=== PATIENT | female | born 1995 | race Caucasian/White ===

== ENCOUNTER 2022-08-10 10:24 | Emergency (ER) | payer OTHER ==
[2022-08-10 11:08] VITALS: BP 120/88
[2022-08-10 11:28] LABS: BASOPHILS # (AUTO) 0.1 10^3/uL (0.0-0.1); EOSINOPHILS # (AUTO) 0.2 10^3/uL (0.0-0.7); EOSINOPHILS % (AUTO) 1.8 %; HCT - HEMATOCRIT 41.3 % (37.0-47.0); HGB - HEMOGLOBIN 13.6 g/dL (12.0-16.0); LYMPHOCYTES # (AUTO) 4.7 10^3/uL (1.5-3.5); LYMPHOCYTES % (AUTO) 40.6 %; MEAN CORPUSCULAR HEMOGLOBIN 29.7 pg (27.0-31.0); MEAN CORPUSCULAR HGB CONC 32.9 g/dL (32.0-36.0); MEAN CORPUSCULAR VOLUME 90.2 fL (81.0-99.0); MEAN PLATELET VOLUME 11.3 fL (7.9-10.8); MONOCYTES % (AUTO) 8.5 %; NEUTROPHILS # (AUTO) 5.5 10^3/uL (1.5-6.6); NEUTROPHILS % (AUTO) 47.9 %; PLT - PLATELET COUNT 337 10^3/uL (130-450); RED BLOOD COUNT 4.58 10^6/uL (4.20-5.40); WHITE BLOOD COUNT 11.6 x10^3/uL (4.8-10.8)
[2022-08-10 11:41] LABS: ALBUMIN 3.7 g/dL (3.2-5.5); ALBUMIN/GLOBULIN RATIO 0.9 (1.0-2.2); BILIRUBIN,TOTAL 0.6 mg/dL (0.2-1.0); CALCIUM 9.5 mg/dL (8.5-10.3); CREATININE 0.7 mg/dL (0.4-1.0); POTASSIUM 3.7 mmol/L (3.5-5.0); TOTAL PROTEIN 7.9 g/dL (6.7-8.2)
--- NOTE | 2022-08-10 12:24 | ED Physician Documentation ---
PD HPI ABD PAIN - Stated complaint Stated Complaint: 12 WKS PREG, SPOTTING - Chief complaint Chief Complaint: Abd Pain - History obtained from History obtained from: Patient - Additional information Additional information: G2 now G3. Her last normal menses was 12 weeks ago but she had an abnormal menses about 6 weeks ago. Today she noticed light vaginal spotting. When I ask her if she is having any cramping she says only if she thinks very hard about it, then it might be very mild. PD PAST MEDICAL HISTORY - Allergies Allergies/Adverse Reactions: Allergies Allergy/AdvReac Type Severity Reaction Status Date / Time No Known Drug Allergies Allergy Verified 08/10/22 11:08 PD ED PE NORMAL - Vitals Vital signs reviewed: Yes - General General: Alert and oriented X 3, No acute distress - Abdomen Abdomen: Non tender - Neuro Neuro: Alert and oriented X 3, Normal speech - Psych Psych: Normal mood, Normal affect Results - Vitals Vitals: Vital Signs - 24 hr 08/10/22 11:04 Temperature 36.8 C Heart Rate 104 H Respiratory 16 Rate Blood Pressure 120/88 H O2 Saturation 100 Oxygen O2 Source Room air - Labs Labs: Laboratory Tests 08/10/22 08/10/22 08/10/22 11:16 11:16 11:16 WBC 11.6 H RBC 4.58 Hgb 13.6 Hct 41.3 MCV 90.2 MCH 29.7 MCHC 32.9 RDW 14.0 Plt Count 337 MPV 11.3 H Neut # (Auto) 5.5 Lymph # (Auto) 4.7 H Steele # (Auto) 1.0 Eos # (Auto) 0.2 Baso # (Auto) 0.1 Absolute Nucleated RBC 0.00 Nucleated RBC % 0.0 Sodium 139 Potassium 3.7 Chloride 107 Carbon Dioxide 26 Anion Gap 6.0 BUN 11 Creatinine 0.7 Estimated GFR (MDRD) 100 Glucose 75 Calcium 9.5 Total Bilirubin 0.6 AST 22 ALT 20 Alkaline Phosphatase 71 Total Protein 7.9 Albumin 3.7 Globulin 4.2 Albumin/Globulin Ratio 0.9 L Lipase 57 H HCG, Quant Urine Color Urine Clarity Urine pH Ur Specific [place] Urine Protein Urine Glucose (UA) Urine Ketones Urine Occult Blood Urine Nitrite Urine Bilirubin Urine Urobilinogen Ur Leukocyte Esterase Ur Microscopic Review Urine Culture Comments Blood Type A NEGATIVE Blood Type Recheck 08/10/22 08/10/22 08/10/22 11:16 12:06 12:32 WBC RBC Hgb Hct MCV MCH MCHC RDW Plt Count MPV Neut # (Auto) Lymph # (Auto) Steele # (Auto) Eos # (Auto) Baso # (Auto) Absolute Nucleated RBC Nucleated RBC % Sodium Potassium Chloride Carbon Dioxide Anion Gap BUN Creatinine Estimated GFR (MDRD) Glucose Calcium Total Bilirubin AST ALT Alkaline Phosphatase Total Protein Albumin Globulin Albumin/Globulin Ratio Lipase HCG, Quant 3642.00 Urine Color YELLOW Urine Clarity CLEAR Urine pH 6.0 Ur Specific [place] 1.015 Urine Protein NEGATIVE Urine Glucose (UA) NEGATIVE Urine Ketones NEGATIVE Urine Occult Blood LARGE H Urine Nitrite NEGATIVE Urine Bilirubin NEGATIVE Urine Urobilinogen 0.2 (NORMAL) Ur Leukocyte Esterase NEGATIVE Ur Microscopic Review INDICATED Urine Culture Comments Not Reportable Blood Type Blood Type Recheck A NEGATIVE - Rads (name of study) OB sono - 5w 2d early IUP Radiology: Final report received, EMP read indepedently Departure - Departure Disposition: 01 Home, Self Care Clinical Impression: Threatened Condition: Good Record reviewed to determine appropriate education?: Yes Instructions: ED Miscarriage Poss Follow-Up: [facility] [Provider Group] Comments: As discussed, the ultrasound shows an intrauterine at 5 weeks and 2 days. It is too early to see any other detail. Recommend repeat ultrasound in 1 week for further info. [place] [facility] (number on this sheet). Discharge Date/Time: 08/10/22 12:37
[2022-08-10 12:37] LABS: BILIRUBIN,URINE NEGATIVE (NEGATIVE); GLUCOSE, URINE (UA) NEGATIVE (NEGATIVE); KETONES,URINE (UA) NEGATIVE (NEGATIVE); LEUKOCYTE ESTERASE, URINE NEGATIVE (NEGATIVE); NITRITE,URINE NEGATIVE (NEGATIVE); OCCULT BLOOD,URINE LARGE (NEGATIVE); PROTEIN,URINE NEGATIVE (NEGATIVE); UROBILINOGEN,URINE 0.2 (NORMAL) E.U./dL (NORMAL)
[2022-08-10 12:40] LABS: CLARITY,URINE CLEAR (CLEAR)
--- NOTE | 2022-08-10 12:45 | Ultrasound Report ---
PROCEDURE: OB First Trimester w/TV INDICATIONS: preg VB OUTSIDE/PRIOR DATING DATA: Last menstrual period (LMP): 05/17/2022. LMP-based estimated date of delivery (GIOVANNI): 02/21/2023. First dating scan (date and location): 08/10/2022. Estimated date of delivery (GIOVANNI) from first dating scan: Not applicable. TECHNIQUE: Real-time scanning was performed of the fetus and maternal pelvic organs, with image documentation. Endovaginal scanning was also performed to better visualize the fetus and maternal ovaries. COMPARISON: None FINDINGS: Embryo: Intrauterine gestational sac is identified measuring 5.2 mm, corresponding to 5 weeks 2 days . No crown-rump length is present. Yolk sac is visualized. Heart rate: Not identified. Measurement variability in dating: +/- 4 weeks by LMP, +/- 7 days by mean sac diameter (use before 6 weeks gestation if crown-rump length not able to be measured), +/- 5 days by crown-rump length (6-12 weeks gestation). Maternal organs: Ovaries demonstrate a right corpus luteal cyst.. IMPRESSION: Intrauterine gestational sac without visualized pole. Recommend correlation to beta hCG levels and short interval imaging follow-up. Reviewed by: Rupal Leon MD on 08/10/2022 12:44 PM PST Approved by: Rupal Leon MD on 08/10/2022 12:44 PM PST Station ID: [id number]
[2022-08-10 13:19] LABS: BACTERIA,URINE Rare /HPF (None Seen); RBC,URINE TNTC /HPF (0-5); SQUAMOUS EPITHELIAL CELL,UR FEW Squamous (<= Few); WBC,URINE 0-3 /HPF (0-5)
== END 2022-08-10 12:37 | disposition home or self-care (01) ==
LOC: ED 10:24
DX: O20.0 Threatened abortion (principal); Z3A.01 Less than 8 weeks gestation of pregnancy
CPT/HCPCS: 36415; 80053; 81001; 81003; 83690; 84702; 85025; 86900; 86901; 87086; 99283; 99284

== ENCOUNTER 2022-08-12 09:28 | Outpatient (CLI) | payer OTHER | END 2022-08-12 09:29 | disposition home or self-care (01) | LOC: LAB 09:28 | PROVIDERS: ATTEND Nurse Practitioner | DX: O20.9 Hemorrhage in early pregnancy, unspecified (principal) | CPT/HCPCS: 36415; 84702 ==

== ENCOUNTER 2022-08-14 15:52 | Outpatient (CLI) | payer OTHER | END 2022-08-14 15:53 | disposition home or self-care (01) | LOC: LAB 15:52 | PROVIDERS: ATTEND Obstetrics & Gynecology | DX: O20.9 Hemorrhage in early pregnancy, unspecified (principal) | CPT/HCPCS: 36415; 84702 ==

== ENCOUNTER 2022-08-19 14:56 | Outpatient (CLI) | payer OTHER | END 2022-08-19 14:57 | disposition home or self-care (01) | LOC: LAB 14:56 | PROVIDERS: ATTEND Nurse Practitioner | DX: O20.9 Hemorrhage in early pregnancy, unspecified (principal) | CPT/HCPCS: 36415; 84702 ==

== ENCOUNTER 2022-08-26 15:55 | Outpatient (CLI) | payer OTHER | END 2022-08-26 15:56 | disposition home or self-care (01) | LOC: LAB 15:55 | PROVIDERS: ATTEND Nurse Practitioner | DX: O03.9 Complete or unspecified spontaneous abortion without complication (principal) | CPT/HCPCS: 36415; 84702 ==

== ENCOUNTER 2023-02-17 08:30 | Outpatient (CLI) | payer OTHER ==
[2023-02-17 12:26] LABS: BASOPHILS # (AUTO) 0.1 10^3/uL (0.0-0.1); BASOPHILS % (AUTO) 1.1 %; EOSINOPHILS # (AUTO) 0.3 10^3/uL (0.0-0.7); EOSINOPHILS % (AUTO) 2.6 %; HCT - HEMATOCRIT 43.7 % (37.0-47.0); LYMPHOCYTES # (AUTO) 4.1 10^3/uL (1.5-3.5); LYMPHOCYTES % (AUTO) 34.1 %; MEAN CORPUSCULAR HEMOGLOBIN 29.2 pg (27.0-31.0); MEAN PLATELET VOLUME 12.5 fL (7.9-10.8); MONOCYTES # (AUTO) 1.1 10^3/uL (0.0-1.0); MONOCYTES % (AUTO) 8.8 %; NEUTROPHILS # (AUTO) 6.5 10^3/uL (1.5-6.6); NEUTROPHILS % (AUTO) 53.2 %; PLT - PLATELET COUNT 297 10^3/uL (130-450); RED CELL DISTRIBUTION WIDTH 13.6 % (12.0-15.0); WHITE BLOOD COUNT 12.1 x10^3/uL (4.8-10.8)
== END 2023-02-17 08:45 | disposition home or self-care (01) ==
LOC: LAB.N 08:30
PROVIDERS: ATTEND Registered Nurse
DX: N93.9 Abnormal uterine and vaginal bleeding, unspecified (principal)
CPT/HCPCS: 36415; 82670; 83001; 83002; 84702; 85025

== ENCOUNTER 2023-05-18 09:24 | Outpatient (CLI) | payer OTHER ==
[2023-05-18 10:11] LABS: THYROID STIMULATING HORMONE 2.9 uIU/mL (0.34-5.60)
[2023-05-18 12:13] LABS: ESTIMATED AVERAGE GLUCOSE 103 mg/dL (70-100); HEMOGLOBIN A1c% 5.2 % (4.27-6.07)
== END 2023-05-18 09:25 | disposition home or self-care (01) ==
LOC: LAB 09:24
PROVIDERS: ATTEND Nurse Practitioner
DX: N93.9 Abnormal uterine and vaginal bleeding, unspecified (principal)
CPT/HCPCS: 36415; 83036; 84436; 84443; 84480

== ENCOUNTER 2023-08-31 08:00 | Outpatient (CLI) | payer OTHER ==
[2023-08-31 20:02] LABS: CHLAMYDIA TRACHOMATIS DNA NEGATIVE (NEGATIVE); NEISSERIA GONORRHOEAE DNA NEGATIVE (NEGATIVE); TRICHOMONAS VAGINALIS DNA NEGATIVE (NEGATIVE)
== END 2023-08-31 23:59 | disposition home or self-care (01) ==
LOC: LAB.WC 08:00
PROVIDERS: ATTEND Nurse Practitioner
DX: Z11.3 Encounter for screening for infections with a predominantly sexual mode of transmission (principal)
CPT/HCPCS: 87491; 87591; 87661